=== PATIENT | female | born 1960 | race Caucasian/White ===

== ENCOUNTER 2017-12-02 13:47 | Emergency (ER) | END 2017-12-02 17:39 | disposition home or self-care (01) ==

== ENCOUNTER 2018-10-15 13:35 | Emergency (ER) | payer OTHER ==
[~2018-10-15] VITALS: Ht 157.5 cm; Wt 83.0 kg
[~2018-10-15 13:35] MED LIST: ACET1TAB40 PO; ACET500C5 PO; BENA10TA4 PO; CEPH-443 PO; INSU100V14 SC; LEVEM SC; MTF1000T PO; SIMV40TA3 PO; SULF1TAB31 PO
[2018-10-15 13:37] VITALS: Ht 157.5 cm; Wt 83.0 kg
--- NOTE | 2018-10-15 15:51 | ERD ---
ER Documentation Chief Complaint Chief Complaint int episodes of near-syncope for a few days, no head injury/n/v HPI This is a 58-year-old female who presents for evaluation of intermittent dizziness described as room spinning. Patient has not had any actual syncopal episodes, she denies any chest pain or shortness of breath. She had a recent cold, and her symptoms of dizziness began after this. She has a history of diabetes, she has not had any recent head trauma, she has not had any speech changes, no weakness. ROS All systems reviewed and are negative except as per history of present illness. Medications Home Meds Active Scripts Meclizine Hcl* (Antivert*) 12.5 Mg Tab, 12.5 MG PO Q6H PRN for DIZZINESS, #20 TAB Prov:GUADALUPE SY MD 10/15/18 Cephalexin* (Keflex*) 500 Mg Capsule, 500 MG PO QID for 5 Days, CAP Prov:COLE MATHEWS PA-C 12/02/17 Sulfamethoxazole/Trimethoprim* (Bactrim Ds* Tablet) 1 Each Tablet, 1 TAB PO BID, #14 TAB Prov:COLE MATHEWS PA-C 12/02/17 Acetaminophen* (Tylophen*) 500 Mg Capsule, 1 CAP PO Q6H PRN for PAIN AND OR ELEVATED TEMP, #20 CAP Prov:JABARI BOYD [employer]OR OPERATOR 12/27/15 Acetaminophen-Codeine* (Acetaminophen-Cod #3*) 1 Tab Tab, 1 TAB PO Q6H PRN for PAIN, #30 Prov:CYNDI REYES 01/17/15 Reported Medications Simvastatin (Simvastatin) 40 Mg Tablet, 40 MG PO HS, TAB 01/02/15 Benazepril Hcl* (Benazepril Hcl*) 10 Mg Tablet, 10 MG PO DAILY, TAB 01/02/15 Insulin Regular, Human (Humulin R) 100 Units/Ml Vial, 10 UNIT SC AC MEALS, VIAL 01/02/15 Insulin Detemir* (Levemir*) 100 U/Ml Vial, 20 UNIT SC HS, VIAL 04/29/14 Metformin* (Glucophage*) 1,000 Mg Tablet, 1000 MG PO BID, TAB 04/29/14 Allergies Allergies: Coded Allergies: No Known Allergy (Unverified , 12/02/17) PMhx/Soc History of Surgery: Yes ( x3) Anesthesia Reaction: No Hx Neurological Disorder: No Hx Respiratory Disorders: No Hx Cardiac Disorders: Yes (htn) Hx Psychiatric Problems: No Hx Miscellaneous Medical Probl: Yes (cyst left plantar foot) Hx Alcohol Use: No Hx Substance Use: No Hx Tobacco Use: No Smoking Status: Never smoker Physical Exam Vitals Vital Signs Date Temp Pulse Resp B/P (MAP) Pulse Ox O2 O2 Flow FiO2 Time Delivery Rate 10/15/18 97.1 101 18 206/96 98 13:37 (132) Physical Exam Const: Well-developed, well-nourished nontoxic appearing Head: Atraumatic Eyes: Normal Conjunctiva ENT: Normal External Ears, Nose and Mouth. Neck: Full range of motion. No meningismus. Resp: Clear to auscultation bilaterally, no wheezes rales or rhonchi. Cardio: Regular rate and rhythm, no murmurs Abd: Soft, non tender, non distended. Normal bowel sounds Skin: No petechiae or rashes Back: No midline or flank tenderness Ext: No cyanosis, or edema Neur: Neuro: M/S: Alert and oriented Face: EOMI, face and pharynx with normal sensation and function Motor: Normal strength throughout Sensation: Normal sensation throughout Speech: Normal Cerebel: Normal coordination Normal gait Normal finger to nose Psych: Normal Mood and Affect Result Diagram: 10/15/18 1522 10/15/18 1521 Results 24 hrs Laboratory Tests Test 10/15/18 15:21 10/15/18 15:22 10/15/18 15:26 Sodium Level 142 mmol/L Potassium Level 4.7 mmol/L Chloride Level 105 mmol/L Carbon Dioxide Level 27 mmol/L Anion Gap 10 Blood Urea Nitrogen 17 mg/dl Creatinine 0.81 mg/dl Est Glomerular Filtrat Rate mL/min > 60 mL/min Glucose Level 254 mg/dl Calcium Level 9.7 mg/dl Total Bilirubin 0.3 mg/dl Direct Bilirubin 0.00 mg/dl Indirect Bilirubin 0.3 mg/dl Aspartate Amino Transf (AST/SGOT) 16 IU/L Alanine 11 IU/L Aminotransferase (ALT/SGPT) Alkaline Phosphatase 131 IU/L Troponin I < 0.012 ng/ml Total Protein 7.9 g/dl Albumin 4.3 g/dl Globulin 3.60 g/dl Albumin/Globulin Ratio 1.19 White Blood Count 8.4 10^3/ul Red Blood Count 4.79 10^6/ul Hemoglobin 12.9 g/dl Hematocrit 38.9 % Mean Corpuscular Volume 81.2 fl Mean Corpuscular Hemoglobin 26.9 pg Mean Corpuscular 33.2 g/dl Hemoglobin Concent Red Cell Distribution Width 13.1 % Platelet Count 294 10^3/UL Mean Platelet Volume 9.6 fl Immature Granulocytes % 0.600 % Neutrophils % 69.8 % Lymphocytes % 24.9 % Monocytes % 3.4 % Eosinophils % 0.8 % Basophils % 0.5 % Nucleated Red Blood Cells % 0.0 /100WBC Immature Granulocytes # 0.050 10^3/ul Neutrophils # 5.9 10^3/ul Lymphocytes # 2.1 10^3/ul Monocytes # 0.3 10^3/ul Eosinophils # 0.1 10^3/ul Basophils # 0.0 10^3/ul Nucleated Red Blood Cells # 0.0 10^3/ul Bedside Glucose 267 mg/dL Procedures/MDM This is a 58-year-old female presents for intermittent dizziness, I suspect the most likely etiology of her symptoms is that she has peripheral vertigo which may have developed from her recent URI. On exam the patient had no neurologic deficits, and have a very low suspicion for a central cause such as acute stroke. She has no chest pain or shortness of breath, however given that she is a diabetic, cardiac work-up was ordered to evaluate for an anginal equivalent. Suspicion is low. Troponin was negative, and labs were overall unremarkable, at discharge patient was in no distress EKG: Rate/Rhythm: Normal Sinus Rhythm QRS, ST, T-waves: T wave inversions noted in V2 and V3, no changes consistent w/ acute ischemia Impression: No evidence of ischemia or arrhythmia Departure Diagnosis: Primary Impression: Dizziness Additional Impression: Vertigo Condition: Stable Patient Instructions: Dizziness (Vertigo) and Balance Problems: Ensuring Your Safety GUADALUPE SY MD Oct 15, 2018 15:51
[2018-10-15] MEDS ORDERED: MECL12.574 PO (15:52)
[2018-10-15 16:26] VITALS: BP 150/68; PULSE 82; RESP 15
== END 2018-10-15 16:28 | disposition home or self-care (01) ==
LOC: E/R 13:35
DX: R42 Dizziness and giddiness (principal); I10 Essential (primary) hypertension; E11.9 Type 2 diabetes mellitus without complications; Z79.4 Long term (current) use of insulin
CPT/HCPCS: 71045; 80053; 82962; 84484; 85025; 93005